=== PATIENT | female | born 1985 | race Caucasian/White ===

== ENCOUNTER 2016-10-31 19:19 | Inpatient (IN) | payer OTHER ==
[~2016-10-31] VITALS: Ht 167.6 cm; Wt 98.2 kg
[~2016-10-31 19:19] MED LIST: CALC-649; FERR27TA; PREN-39
[2016-10-31 20:10] VITALS: BP 132/81; PULSE 71; RESP 16
[2016-10-31] MEDS ORDERED: FOLI0.4T2 PO (20:13)
[2016-10-31] MEDS ORDERED: BUTORPHANOL 2 MG INJ IV PRN (21:30)
[2016-10-31] MEDS ORDERED: OXYTOCIN 30 UNITS/LR 500 ML IV PRN (21:30)
[2016-10-31] MEDS ORDERED: IBUPROFEN 600 MG TAB PO PRN (21:30)
[2016-10-31] MEDS ORDERED: CARBOPROST 250 MCG INJ IM PRN (21:30)
[2016-10-31] MEDS ORDERED: METHYLERGONOVINE 0.2 MG INJ IM PRN (21:30)
[2016-10-31] MEDS ORDERED: OXYTOCIN 30 UNITS/LR 500 ML IV SCH ×2 (21:30)
[2016-10-31] MEDS ORDERED: MISOPROSTOL 200 MCG TAB PR PRN (21:30)
[2016-10-31] MEDS ORDERED: AMPICILLIN 2 GM/NS (PMX) 100 ML IV ONE (21:30)
[2016-10-31] MEDS ORDERED: LIDOCAINE 1% (MPF) 30 ML INJ INJ PRN (21:30)
--- NOTE | 2016-10-31 21:35 | TRIAGE ---
OB Triage Datetime Report Generated by CPN: 10/31/2016 21:34 Datetime: 10/31/2016 20:33 Stage of : OB Triage Labor Evaluation Frequency: 2-10 Monitor Mode: External Duration (sec)2399: 30-60 Quality: Mild Pattern: Normal: <= 5 Contractions in 10 Minutes Resting Tone [place] View: Relaxed Heart Rate FHR Baseline Rate: 140 Monitor Mode: External US FHR Baseline Changes: No Baseline Change Variability: Moderate 6-25 bpm Accelerations: 15X15 Decelerations: Variable Category: Category II Vaginal Exam Dilatation (cms): 2.0 Effacement (%): 70 Station: -2 Exam By: Renata Gamez Membrane Status: Intact Amniotic Fluid Amount: None Amniotic Fluid Odor: None Vaginal Bleeding: None Cervix, Consistency: Soft Cervix, Position: Posterior Presentation 'A': Cephalic Datetime: 10/31/2016 20:18 Time of Arrival: 10/31/2016 19:10 EGA: 38.5 Arrived By: Ambulatory Arrived From: Home Chief Complaint: c/o ucs Movement: Present Contractions: Irregular Time Contractions Began: 10/31/2016 15:00 Contractions: q10-15 Rupture of Membranes: Denies Vaginal Bleeding: None Vaginal Discharge: Denies Recent Sexual Intercouse: Denies Abdominal Trauma: Not Applicable Patient Complaints: Contractions Time Provider Notified: 10/31/2016 20:55 Provider Notified: Dr Robles Initial Plan: EFM,SVE Datetime: 10/31/2016 19:32 Stage of : OB Triage Maternal Assessment Level of Consciousness: Fully Conscious Headache: Denies Blurred Vision: No Respiratory Effort: Unlabored Nausea/Vomiting: Denies RUQ Epigastric Pain: Denies Facial Edema: None Labor Evaluation Frequency: placed Quality: Mild Resting Tone [place] View: Relaxed Heart Rate FHR Baseline Rate: 130 Monitor Mode: External US Pain Assessment Pain Scale: 7 Pain Presence: Intermittent Pain Type: Contraction Pain Location: Abdomen
[2016-10-31] MEDS: LACTATED RINGER'S 1,000 ML IV SCH (22:19)
[2016-10-31 22:37] LABS: BARBITURATES Negative (NEGATIVE); BENZODIAZEPINES Negative (NEGATIVE); CANNABINOIDS Positive (NEGATIVE); COCAINE Negative (NEGATIVE); OPIATES Negative (NEGATIVE)
[2016-10-31 22:46] LABS: BASOPHILS % 0.2 % (0.0-2.0); EOSINOPHILS % 0.5 % (0.0-7.0); HEMATOCRIT 35.9 % (37.0-47.0); HEMOGLOBIN 11.8 g/dl (12.0-16.0); LYMPHOCYTES # 2.2 10^3/ul (0.8-2.9); LYMPHOCYTES % 26.7 % (15.0-51.0); MEAN CORPUSCULAR HEMOGLOBIN 26.7 pg (29.0-33.0); MEAN CORPUSCULAR HGB CONC 32.9 g/dl (32.0-37.0); MEAN CORPUSCULAR VOLUME 81.2 fl (82.0-101.0); MEAN PLATELET VOLUME 12.4 fl (7.4-10.4); MONOCYTE # 0.5 10^3/ul (0.3-0.9); MONOCYTES % 5.9 % (0.0-11.0); NEUTROPHIL # 5.4 10^3/ul (1.6-7.5); NEUTROPHILS % 66.5 % (39.0-77.0); PLATELET COUNT 233 10^3/UL (140-415); RED BLOOD COUNT 4.42 10^6/ul (4.20-5.40); RED CELL DISTRIBUTION WIDTH 15.1 % (11.5-14.5); WHITE BLOOD COUNT 8.2 10^3/ul (4.8-10.8)
[2016-10-31] MEDS ORDERED: LACTATED RINGER'S 1,000 ML IV PRN (23:00)
[2016-10-31 23:16] LABS: INR 0.82; PROTIME 11.3 Sec (12.2-14.2); PT RATIO 0.9
[2016-10-31 23:17] LABS: PARTIAL THROMBOPLASTIN TIME 27.2 Sec (25.0-35.0)
[2016-11-01] MEDS ORDERED: AMPICILLIN 1 GM/NS (PMX) 50 ML IV SCH (01:30)
[2016-11-01] MEDS: LACTATED RINGER'S 1,000 ML IV SCH ×3 (04:49→19:56)
[2016-11-01] MEDS ORDERED: OXYTOCIN 30 UNITS/LR 500 ML IV SCH (09:00)
[2016-11-02] MEDS ORDERED: AMPICILLIN 2 GM/NS (PMX) 100 ML ONE (01:27)
[2016-11-02] MEDS ORDERED: AMPICILLIN 2 GM/NS (PMX) 100 ML IV ONE (01:30)
[2016-11-02] MEDS ORDERED: DIPHENHYDRAMINE 50 MG INJ IV PRN (04:30)
[2016-11-02] MEDS ORDERED: EPHEDrine SULFATE 50 MG/5 ML SYG IV PRN (04:30)
[2016-11-02] MEDS ORDERED: NALOXONE (0.4 MG/ML) INJ IV PRN (04:30)
[2016-11-02] MEDS ORDERED: ONDANSETRON 4 MG INJ IV PRN (04:30)
[2016-11-02] MEDS ORDERED: FENTAnyl 2MCG/ML-ROPIV 0.2% 100 ML BAG EPI SCH (04:30)
[2016-11-02] MEDS: LACTATED RINGER'S 1,000 ML IV SCH (04:53)
[2016-11-02] MEDS ORDERED: AMPICILLIN 1 GM/NS (PMX) 50 ML IV SCH (05:30)
--- NOTE | 2016-11-02 07:43 | HP ---
Date/Time of Note Date/Time of Note DATE: 11/02/16 TIME: 07:42 OB - History Hx of Present Free Text/Dictation AT TERM IN LABOR : 2 Para: 1 Care: Good Care Ultrasounds: Normal mid trimester US Obstetrical Complications: None Medical Complications: None Past Family/Social History * Past Medical, Surgical, Family and Obstetric Histories reviewed from chart. OB Admission Exam Vital Signs Vital Signs Vital Signs Date Time Temp Pulse Resp B/P Pulse Ox O2 Delivery O2 Flow Rate FiO2 10/31/16 20:10 98.4 71 16 132/81 Room Air Physical Exam HEENT: WNL Heart: Rhythm Normal Lungs: Clear, Equal Abdomen: WNL Extremities: Normal Reflexes: Normal Cervical Dilatation: 10cm Effacement: 100% Station: +3 Amniotic Fluid: Clear Heart Rate: 130's Accelerations: Accelerations Present Decelerations: No Decelerations Contractions on Admission: 6-10 Minutes Apart Last 72 hours Lab Results CBC & BMP 10/31/16 22:15 OB Assessment/Plan Reason for admission: active labor Plan: Expectant Management DEBORAH JUÁREZ MD Nov 02, 2016 07:43
--- NOTE | 2016-11-02 07:44 | LDN ---
Date/Time of Note Date/Time of Note DATE: 11/02/16 TIME: 07:44 Delivery Summary NSD W/O COMPLICATIONS Meconium: none Episiotomy: No Perineal laceration: 1 Anesthesia type: Epidural Estimated blood loss: 300 Sponge & Needle done & correct: Yes All needle counts correct: Yes Any foreign bodies felt in the: No Problems: DEBORAH JUÁREZ MD Nov 02, 2016 07:44
[2016-11-02 09:30] VITALS: BP 131/68; PULSE 88; RESP 18
[2016-11-02] MEDS: OXYTOCIN 30 UNITS/LR 500 ML IV SCH ×2 (09:41→12:55)
[2016-11-02] MEDS: LACTATED RINGER'S 1,000 ML IV* SCH ×2 (09:41→17:15)
[2016-11-02 10:00] VITALS: BP 128/63; PULSE 85; RESP 19
[2016-11-02] MEDS ORDERED: LANOLIN 7 GM TUBE TOP PRN (10:00)
[2016-11-02] MEDS ORDERED: WITCH HAZEL/GLYCERIN PAD PR PRN (10:00)
[2016-11-02] MEDS ORDERED: DIPHENHYDRAMINE 25 MG CAP PO PRN (10:00)
[2016-11-02] MEDS ORDERED: ACETAMINOPHEN 325 MG TAB PO PRN (10:00)
[2016-11-02] MEDS ORDERED: MISOPROSTOL 200 MCG TAB PR PRN (10:00)
[2016-11-02] MEDS ORDERED: METHYLERGONOVINE 0.2 MG INJ IM PRN (10:00)
[2016-11-02] MEDS ORDERED: SENNA/DOCUSATE NA (8.6MG/50MG) TAB PO PRN (10:00)
[2016-11-02] MEDS ORDERED: OXYTOCIN 30 UNITS/LR 500 ML IV PRN (10:00)
[2016-11-02] MEDS ORDERED: CARBOPROST 250 MCG INJ IM PRN (10:00)
[2016-11-02] MEDS ORDERED: ZOLPIDEM 5 MG TAB PO PRN (10:00)
[2016-11-02] MEDS ORDERED: MAGNESIUM HYDROXIDE 30ML CUP PO PRN (10:00)
[2016-11-02 11:11] LABS: RUBELLA ANTIBODY - IGG 1.52 index
[2016-11-02] MEDS: BENZOCAINE 20% 56 ML SPRAY TOP PRN (11:51)
[2016-11-02] MEDS: IBUPROFEN 800 MG TAB PO SCH ×3 (11:51→23:36)
[2016-11-02 15:51] VITALS: BP 139/83; PULSE 73; RESP 19
[2016-11-02 19:40] VITALS: BP 128/68; PULSE 69; RESP 18
[2016-11-02 23:30] VITALS: BP 112/70; PULSE 69; RESP 18
[2016-11-03] MEDS: LACTATED RINGER'S 1,000 ML IV* SCH (01:41)
[2016-11-03 03:40] VITALS: BP 130/82; PULSE 67; RESP 20
[2016-11-03] MEDS: HYDROCODONE/APAP (5/325) TAB PO PRN (03:47)
[2016-11-03] MEDS: IBUPROFEN 800 MG TAB PO SCH ×4 (05:30→23:42)
[2016-11-03 06:47] LABS: BASOPHILS % 0.2 % (0.0-2.0); EOSINOPHILS # 0.1 10^3/ul (0.0-0.5); EOSINOPHILS % 0.4 % (0.0-7.0); HEMATOCRIT 30.4 % (37.0-47.0); HEMOGLOBIN 9.8 g/dl (12.0-16.0); LYMPHOCYTES # 1.7 10^3/ul (0.8-2.9); LYMPHOCYTES % 13.2 % (15.0-51.0); MEAN CORPUSCULAR HEMOGLOBIN 26.9 pg (29.0-33.0); MEAN CORPUSCULAR HGB CONC 32.2 g/dl (32.0-37.0); MEAN CORPUSCULAR VOLUME 83.5 fl (82.0-101.0); MEAN PLATELET VOLUME 12.6 fl (7.4-10.4); MONOCYTE # 0.7 10^3/ul (0.3-0.9); MONOCYTES % 5.7 % (0.0-11.0); NEUTROPHIL # 10.3 10^3/ul (1.6-7.5); NEUTROPHILS % 80.1 % (39.0-77.0); PLATELET COUNT 180 10^3/UL (140-415); RED BLOOD COUNT 3.64 10^6/ul (4.20-5.40); RED CELL DISTRIBUTION WIDTH 15.5 % (11.5-14.5); WHITE BLOOD COUNT 12.9 10^3/ul (4.8-10.8)
[2016-11-03 07:15] VITALS: BP 127/73; PULSE 66; RESP 19
--- NOTE | 2016-11-03 11:23 | QN ---
Documentation Comment doing well vss abd soft d/c home tomorrow DEBORAH JUÁREZ MD Nov 03, 2016 11:23
--- NOTE | 2016-11-03 11:24 | DS ---
Date/Time of Note Date/Time of Note DATE: 11/03/16 TIME: 11:23 Discharge Summary Admission/Discharge Info Admit Date/Time Oct 31, 2016 at 20:55 Discharge Date/Time Discharge Diagnosis term preg Patient Condition: Stable Hospital Course unremarkable Home Meds Reported Medications Folic Acid* (Folic Acid*) 0.4 Mg Tablet, 0.4 MG PO DAILY, TAB 10/31/16 Vits W-Ca,Fe,Fa(<1MG) ( Vitamins) 1 Tab Tablet 04/13/10 Discontinued Reported Medications Ferrous Sulfate (Iron) 1 Tab Tablet 04/13/10 Calcium Carbonate (Calcium) 1 Tab Tablet 04/13/10 Primary Care Provider Almaz Jalloh DO Pending Labs Laboratory Tests Test 11/03/16 05:46 White Blood Count 12.910^3/ul (4.8-10.8) Red Blood Count 3.6410^6/ul (4.20-5.40) Hemoglobin 9.8g/dl (12.0-16.0) Hematocrit 30.4% (37.0-47.0) Mean Corpuscular Volume 83.5fl (82.0-101.0) Mean Corpuscular Hemoglobin 26.9pg (29.0-33.0) Mean Corpuscular Hemoglobin Concent 32.2g/dl (32.0-37.0) Red Cell Distribution Width 15.5% (11.5-14.5) Platelet Count 98269^3/UL (140-415) Mean Platelet Volume 12.6fl (7.4-10.4) Neutrophils % 80.1% (39.0-77.0) Lymphocytes % 13.2% (15.0-51.0) Monocytes % 5.7% (0.0-11.0) Eosinophils % 0.4% (0.0-7.0) Basophils % 0.2% (0.0-2.0) Nucleated Red Blood Cells % 0.0/100WBC (0.0-0.0) Neutrophils # 10.310^3/ul (1.6-7.5) Lymphocytes # 1.710^3/ul (0.8-2.9) Monocytes # 0.710^3/ul (0.3-0.9) Eosinophils # 0.110^3/ul (0.0-0.5) Basophils # 0.010^3/ul (0.0-0.1) Nucleated Red Blood Cells # 0.010^3/ul (0.0-0.0) DEBORAH JUÁREZ MD Nov 03, 2016 11:24
[2016-11-03 15:55] VITALS: BP 126/82; PULSE 71; RESP 19
[2016-11-03 19:30] VITALS: BP 138/85; RESP 20
[2016-11-04 04:45] VITALS: BP 122/68; PULSE 71; RESP 20
[2016-11-04] MEDS: IBUPROFEN 800 MG TAB PO SCH ×2 (06:00→12:15)
[2016-11-04 08:15] VITALS: BP 133/85; PULSE 65; RESP 17
[2016-11-04] MEDS ORDERED: MEASLES,MUMPS,RUBELLA VACCINE INJ SC* ONE (09:00)
[2016-11-04] MEDS ORDERED: VARICELLA VACCINE LIVE/PF 1,350 UNIT/0.5 ML ML SC* ONE (09:00)
[2016-11-04] MEDS ORDERED: DIPHTH/TET/ACEL PERTUSS (ADULT) 0.5 ML VIAL IM* ONE (09:00)
[2016-11-04] MEDS: HYDROCODONE/APAP (5/325) TAB PO PRN (09:18)
[2016-11-04] MEDS: BENZOCAINE 20% 56 ML SPRAY TOP PRN (14:27)
== END 2016-11-04 15:08 | disposition home or self-care (01) | DRG 775 ==
LOC: OBT 19:19 → L-D 19:21 → OBT 20:55 → PP1 11-02 09:32
PROVIDERS: ADMIT Obstetrics & Gynecology; ATTEND Obstetrics & Gynecology
PROC: 10E0XZZ Delivery of Products of Conception, External Approach (ICD-10-PCS; principal; 2016-11-02)
DX: O70.0 First degree perineal laceration during delivery (principal); Z37.0 Single live birth; Z3A.38 38 weeks gestation of pregnancy
CPT/HCPCS: 62319; 80307; 85025; 85610; 85730; 86592; 86762; 86900; 86901; 87340; 90715; 90716; G0463; J0290; J0595; J2590; J3010; J7120